=== PATIENT | female | born 1945 | race Caucasian/White ===

== ENCOUNTER → 2019-12-26 | Day surgery (SDC) | payer OTHER ==
--- NOTE | 2019-12-29 11:10 | OP ---
DATE OF OPERATION: 12/26/2019 PREOPERATIVE DIAGNOSIS: Left axillary adenopathy. POSTOPERATIVE DIAGNOSIS: Left axillary adenopathy. PROCEDURE: Left ultrasound-guided axillary node core biopsy and clip placement. ANESTHESIA: Local. ATTENDING SURGEON: Zakia Parks MD ESTIMATED BLOOD LOSS: Minimal. COMPLICATIONS: None. DESCRIPTION OF PROCEDURE: Patient was made aware of the risks and benefits of the procedure and consented. She was placed in a supine position. Under sterile conditions with 1% lidocaine for local anesthesia, a small tomy was made in the skin. Using a 13-gauge suction biopsy device via inferolateral approach under ultrasound guidance, multiple cores were obtained and submitted to Pathology. Likewise, under ultrasound guidance, a barrel-shaped Hydromark clip was placed into the biopsy region. Well tolerated by patient. Steri-Strips and a sterile bandage were applied. We will contact her with results. ZAKIA PARKS M.D. [id number]
--- NOTE | 2019-12-30 17:17 | PATH ---
Surgical Pathology Report Patient Name: GILMER PERALTA [facility]. Rec. #: [id number] /Age/Gender: 1945 (Age: 74) / F Account: [id number] Location: Taken: 12/26/2019 Received: 12/26/2019 Reported: 12/30/2019 Physicians: Ruslan Angelo M.D. Specimen(s) Received LEFT AXILLARY LYMPH NODE CORE BIOPSY Clinical History Left breast cancer recurrent Final Diagnosis LEFT AXILLARY LYMPH NODE, CORE BIOPSY: METASTATIC CARCINOMA IN A BACKGROUND OF LYMPHOID TISSUE, CONSISTENT WITH DUTCAL CARCINOMA OF BREAST PRIMARY. Results of Estrogen Receptor (ER) and Progesterone Receptor (WA) studies performed on block "A1" at [facility] are as follows: ER (clone [id number] mouse monoclonal antibody by [employer]): 100% nuclear staining with strong intensity (Positive). WA (clone16 mouse monoclonal antibody by Leica): 95% nuclear staining with strong intensity (Positive). Her2 (IHC) [facility] [place] [place] [place] ([id number]) interpreted at [facility] is as following: Her2 IHC (EP3 from [employer], formerly known as [id number], using [employer]aki Polymer Refine detection kit): Negative (0) Comment: Immunohistochemical stains show the tumor cells are positive for CK7 and MARK 3, while negative for CK20, consistent with breast primary. E-Cadherin shows strong diffuse membranous staining in the tumor cells, supports a ductal phenotype. CK7, Ck20, and E-cadherin performed and interpreted at [facility]. MARK 3 [place], [place] ([id number]) interpreted at [facility]. Positive and negative controls (internal if applicable) show appropriate results. Formalin fixation and cold ischemic times are within current ASCO/CAP recommendations for ER, WA and Her2 testing. Electronically Signed Lisseth Morales M.D. Gross Description Received in formalin labeled "left axilla," is a 4.0 x 2.0 x 0.3 cm aggregate of multiple wilson-red, irregular to cylindrical portions of fibroadipose tissue. The formalin is filtered and the specimen is entirely submitted in 2 cassettes. Total formalin fixation: Approximately 6 hours. /12/26/2019 saudi/12/26/2019
== END | disposition home or self-care (01) ==
LOC: FRADUS-SUR 13:16
PROVIDERS: ATTEND Surgery Surgical Oncology
PROC: 07B63ZX Excision of Left Axillary Lymphatic, Percutaneous Approach, Diagnostic (ICD-10-PCS; principal; 2019-12-26)
PROC: BH41ZZZ Ultrasonography of Left Breast (ICD-10-PCS; 2019-12-26)
DX: C50.912 Malignant neoplasm of unspecified site of left female breast (principal); C77.3 Secondary and unspecified malignant neoplasm of axilla and upper limb lymph nodes; Z17.0 Estrogen receptor positive status [ER+]; R59.0 Localized enlarged lymph nodes
CPT/HCPCS: 19083; 38505; 76604; 76942; 87899; 88305-TC; 88341-TC; 88342-TC; A4648